=== PATIENT | female | born 1950 | race Caucasian/White ===

== ENCOUNTER 2022-02-04 15:19 | Emergency (ER) | payer OTHER, SELFPAY ==
[2022-02-04] VITALS (7 sets, daily range): BP systolic 104–129; BP diastolic 67–82; PULSE 99–101; RESP 14–18; TEMP 36.8–37; O2SAT 96–99; BMI 19.9
--- NOTE | 2022-02-04 15:56 | ED_ITS ---
HPI - Abdominal Pain General: Chief Complaint: Abdominal Pain Stated Complaint: severe abdominal pain/nausea/fever Time Seen by Provider: 02/04/22 15:56 History of Present Illness: Ms. Murguia is a 71-year-old lady without significant medical history who presents to the emergency department due to right lower quadrant abdominal pain. Onset of symptoms was this morning. There is no known specific inciting event. She endorses right lower quadrant pain which is moderate to severe in intensity worse with movement. She has associated nausea and chills with nausea however has not vomited. Denies urinary symptoms or changes in bowel movements. She describes pain as twisting. Overall course of symptoms has worsened. No other specific changes in health, exacerbating, or alleviating factors identified. Onset (ago): hour(s) Pain Consistency: constant Location: RLQ Quality: other Exacerbating factors: movement Relieving factors: nothing Review of Systems General: Reports: 10 or more systems reviewed and unremarkable except in HPI and below PFSH ED PFSH: Medical History (Updated 02/08/22 @ 00:33 by Rodriguez Fuller MD) Right ureteral calculus Surgical History History of cholecystectomy Family History Mother , at age 83 COPD (chronic obstructive pulmonary disease) Father , at age 50 Heart attack Social History Smoking and tobacco status: current every day smoker Alcohol intake: never Marital status: Current occupational status: employed and retired History of recent travel: No Physical Exam Const: COMMON NORMALS: alert GENERAL APPEARANCE: cooperative, well d eveloped and in distress (Uncomfortable due to pain) HENMT: COMMON NORMALS: normocephalic and atraumatic HEAD & SCALP: normocephalic and atraumatic Eye: COMMON NORMALS: conjunctivae normal CONJUNCTIVA: Yes conjunctivae normal SCLERA: sclerae normal Neck/C-Spine: COMMON NORMALS: supple GENERAL: Yes trachea midline Resp: COMMON NORMALS: clear to auscultation bilaterally EFFORT & INSPECTION: Yes able to speak in complete sentences AUSCULTATION: clear to auscultation bilaterally Cardio: COMMON NORMALS: regular rhythm RATE: tachycardic RHYTHM: regular rhythm GI: COMMON NORMALS: Soft to palpation PALPATION: Yes Soft to palpation, Yes Tenderness to palpation present (GI), Yes Guarding due to palpation present (GI), No Rigid due to palpation and Yes Rebound tenderness present Details: McBurney's point Extremity: GENERAL: Yes normal exam except as noted and No edema Neuro: COMMON NORMALS: moves all extremities SENSORIUM/ORIENTATION: Yes alert and No Orientation impaired Psych: COMMON NORMALS: mental status grossly normal and Normal thought process present THOUGHT PROCESS: Normal thought process present Course ED course: - Patient was seen and evaluated by me at bedside - Patient placed on cardiac monitors, IV access obtained - Initial evaluation notable for exam as above - Labs personally interpreted by me. EKG from 11/06/2004 interpreted by me shows sinus rhythm with no STEMI. -Analgesia given - Labs notable for no leukocytosis, normal hemoglobin. Metabolic panel without acute derangement, creatinine normal. Urinalysis without evidence of UTI, hematuria present. - Imaging notable for right UPJ obstructing stone with perinephric stranding and severe hydronephrosis. - Discussed with urology, plan for close outpatient follow-up given somewhat atypical obstructive properties of relatively small stone assuming patient's pain controllable - Upon serial reexamination after treatment the patient was improved with control of pain - Based on patient history, evaluation, and testing as interpreted the most likely cause of the patient's condition is obstructing right nephrolithiasis - The results of ED evaluation were discussed with the patient including prescriptions and/or symptomatic cares (if applicable) including appropriate and responsible use, followup plan, and return precautions. The patient verbalized understanding and felt safe for discharge. - Patient discharged in satisfactory condition. Note: Click bubbles or prepopulated dhaliwal in note writing are used for assistance with data collection and billing and are inherently more limited than narrative and other text portions of this note. Please use narrative for additional clinical history and defer to narrative/free test for any case of contradictory information. If information appears in only free text or click bubble it should be considered present or absent as reported. Please contact note creative writer for clarifications of clinical information or contradictory information. MDM is a brief summary, contradictory or erroneous seeming information should be clarified and full note should be reviewed. Vital Signs: Vital signs: Vital Signs Temperature 98.2 F 02/04/22 20:17 Pulse Rate 99 02/04/22 20:17 Respiratory Rate 14 02/04/22 20:17 Blood Pressure 104/82 02/04/22 20:17 Pulse Oximetry 96 02/04/22 20:17 MDM - Abdominal Pain Medical Decision Making 71-year-old lady without significant past medical history presenting with right lower quadrant pain. Patient found to have relatively small though obstructing UPJ stone. Pain controlled. No evidence of UTI. Satisfactory outpatient management with close follow-up with urology. Medical Records I reviewed the patient's medical records. Lab Data I reviewed the patient's lab results. : 02/04/22 16:55 02/04/22 17:23 Labs/Radiology: Radiology Impressions Abdomen/Pelvis CT 02/04/22 16:17 IMPRESSION: 1. 2.6 mm stone at the right ureteropelvic junction with severe right hydronephrosis and extensive right perinephric inflammation. 2. Incidental note of a bicornuate uterus. 3. Incidental/nonacute findings are listed in the report. Laboratory Results WBC 9.6 10^3/uL (4.0-10.0) 02/04/22 16:55 RBC 4.44 10^6/uL (4.1-5.3) 02/04/22 16:55 Hgb 13.3 g/dL (11.5-15.3) 02/04/22 16:55 Hct 40.5 % (37.0-47.0) 02/04/22 16:55 MCV 91.2 fl (81-99) 02/04/22 16:55 MCH 30.0 pg (28.0-34.0) 02/04/22 16:55 MCHC 32.8 g/dL (30.0-36.0) 02/04/22 16:55 RDW 12.7 % (12.1-15.1) 02/04/22 16:55 Plt Count 192 10^3/cmm (130-400) 02/04/22 16:55 MPV 11.7 fL (7.4-10.4) H 02/04/22 16:55 Neut % (Auto) 90.9 % 02/04/22 16:55 Lymph % (Auto) 6.8 % 02/04/22 16:55 Green % (Auto) 1.6 % 02/04/22 16:55 Eos % (Auto) 0.1 % 02/04/22 16:55 Baso % (Auto) 0.4 % 02/04/22 16:55 Neut # (Auto) 8.75 10^3/uL (1.8-7.7) H 02/04/22 16:55 Lymph # (Auto) 0.7 10^3/uL (0.8-4.8) L 02/04/22 16:55 Green # (Auto) 0.2 10^3/uL (0.2-0.9) 02/04/22 16:55 Eos # (Auto) 0.0 10^3/uL (0.0-0.8) 02/04/22 16:55 Baso # (Auto) 0.0 10^3/uL (0.0-0.1) 02/04/22 16:55 Nucleated RBC % (auto) 0 % 02/04/22 16:55 Nucleated RBCs # 0.0 /100WBC 02/04/22 16:55 Sodium 140 mmol/L (136-145) 02/04/22 17:23 Potassium 4.2 mmol/L (3.5-5.1) 02/04/22 17:23 Chloride 107 mmol/L (98-107) 02/04/22 17:23 Carbon Dioxide 23 mmol/L (22-29) 02/04/22 17:23 Anion Gap 14.2 (5-19) 02/04/22 17:23 BUN 12 mg/dL (8-23) 02/04/22 17:23 Creatinine 0.8 mg/dL (0.5-0.9) 02/04/22 17:23 GFR Calculation 70.9 mL/min (90-130) L 02/04/22 17:23 Glucose 114 mg/dL (65-115) 02/04/22 17:23 Calculated Osmolality 291 mOsm/kg (285-295) 02/04/22 17:23 Lactate 0.7 mmol/L (0.5-2.2) 02/04/22 16:55 Calcium 9.5 mg/dL (8.5-10.5) 02/04/22 17:23 Total Bilirubin 0.3 mg/dL (0.15-1.2) 02/04/22 17:23 AST 27 U/L (0-32) 02/04/22 17:23 ALT 21 U/L (0-33) 02/04/22 17:23 Alkaline Phosphatase 80 IU/L (35-105) 02/04/22 17: Total Protein 7.1 g/dL (6.6-8.7) 02/04/22 17: Albumin 4.4 g/dL (3.5-5.2) 02/04/22 17: Globulin 2.7 g/dL (1.3-4.6) 02/04/22 17: Lipase 26 U/L (13-60) 02/04/22 17:23 Urine Color Yellow (Yellow) 02/04/22 17:25 Urine Appearance Clear (CLEAR) 02/04/22 17:25 Urine pH 6 (5-7) 02/04/22 17:25 Ur Specific [place] 1.020 (1.005-1.030) 02/04/22 17:25 Urine Protein Neg (Negative) 02/04/22 17:25 Urine Glucose (UA) Norm (Normal) 02/04/22 17:25 Urine Ketones 2+ (Negative) H 02/04/22 17:25 Urine Blood 2+ (Negative) H 02/04/22 17:25 Urine Nitrate Negative (Negative) 02/04/22 17:25 Urine Bilirubin Neg (Negative) 02/04/22 17:25 Urine Urobilinogen Norm mg/dL (Negative) 02/04/22 17:25 Ur Leukocyte Esterase Negative (Negative) 02/04/22 17:25 Urine RBC 25-40 /hpf (0-2) H 02/04/22 17:25 Urine WBC 0-4 /hpf (0-5) H 02/04/22 17:25 Ur Squamous Epith Cells 0-4 /hpf (0-5) H 02/04/22 17:25 Amorphous Sediment Not Reportable 02/04/22 17:25 Urine Bacteria 1+ /hpf (NONE) H 02/04/22 17:25 Discharge Plan Discharge Patient Disposition: Home Clinical Impression: Obstruction of ureteropelvic junction (UPJ) due to stone, Hydronephrosis Condition: Stable Prescriptions: New oxycodone 5 mg tablet 5 mg PO Q4H PRN (Reason: pain) Qty: 20 0RF Flomax 0.4 mg capsule 0.4 mg PO DAILY Qty: 10 0RF ondansetron 4 mg tablet,disintegrating 4 mg PO Q8H PRN (Reason: nausea and vomiting) Qty: 15 0RF Discharge Orders: Discharge ED (Routine); Ordered 02/04/22 Ordered By: Rodriguez Fuller Referrals: Harley Colindres DO [Emergency Department] - Discharge Diet: Usual diet Discharge Activity: Resume usual activity Patient Instructions: Kidney Stones (ED), Opioid Safety Activity Restrictions/Additional Instructions: Thank you for visiting the emergency department. You were seen and evaluated for abdominal pain. You are found to have a kidney stone which likely explains your symptoms. You do have evidence of obstruction and inflammation around the kidney though no evidence of infection is seen. The kidney stone is at the junction of the kidney and ureter. I did discuss your case with Dr. Catalan, he is follow-up with him. Please call his clinic in the morning for potential follow-up tomorrow. I recommend repeat laboratory studies if not obtained sooner within 5 to 7 days to ensure kidney function is still adequate. Please return to the emergency department for uncontrolled pain, fevers, inability to tolerate oral intake, or anything else that you are concerned about and feel needs emergency department evaluation. Coding Level of Care Code ED Pediatric Radiologist for Mel Zimmerman Exam Comprehensive
--- NOTE | 2022-02-04 16:17 | CTR_ITS ---
PROCEDURE INFORMATION: Exam: CT Abdomen And Pelvis With Contrast Exam date and time: 02/04/2022 6:24 PM Age: 71 years old Clinical indication: Abdominal pain; Localized; Right lower quadrant (rlq); Prior surgery; Surgery date: 6+ months; Surgery type: Choley hernia; Additional info: Rlq pain 1 day, +rebound, ? appy TECHNIQUE: Imaging protocol: Computed tomography of the abdomen and pelvis with contrast. Sagittal and coronal reformatted images were created and reviewed. Radiation optimization: All CT scans at this facility use at least one of these dose optimization techniques: automated exposure control; mA and/or kV adjustment per patient size (includes targeted exams where dose is matched to clinical indication); or iterative reconstruction. Contrast material: OMNI 300; Contrast volume: 95 ml; Contrast route: INTRAVENOUS (IV); COMPARISON: No relevant prior studies available. RADIATION DOSE METRICS: Total DLP (mGy-cm): 825.04 FINDINGS: Lungs: Visualized lungs are clear. Pleural spaces: No pleural effusion. Heart: Visualized portions of the heart are mildly enlarged. Liver: The liver is unremarkable. Gallbladder and bile ducts: Patient has had a previous cholecystectomy. Dilatation of the biliary ducts, not unexpected in a patient who has had a prior cholecystectomy. Pancreas: The pancreas is unremarkable. No pancreatic ductal dilatation. Spleen: The spleen is unremarkable. Adrenal glands: The right and left adrenal glands are unremarkable. Kidneys and ureters: 2.6 mm stone at the right ureteropelvic junction with severe right hydronephrosis and extensive right perinephric inflammation. The left kidney is unremarkable. The left ureter is unremarkable. Stomach and bowel: No obstruction. No mucosal thickening. Appendix: The appendix is visualized and is unremarkable. No findings to suggest acute appendicitis. Intraperitoneal space: No free intraperitoneal air. No ascites. No loculated fluid collections to suggest an abscess. Vasculature: Mild atherosclerotic changes in the visualized arteries. No evidence for aortic aneurysm or aortic dissection. Hepatic veins, portal veins, splenic vein, and SMV are patent. Lymph nodes: No lymphadenopathy. Urinary bladder: The bladder is incompletely filled, which can limit evaluation. No focal abnormality in the bladder however. Reproductive: Incidental note of a bicornuate uterus. The right and left ovaries are unremarkable. Bones/joints: Degenerative changes in the spine and hips. Bones are diffusely osteopenic. Soft tissues: No acute abnormality in the extra-abdominal soft tissues. CT/CT abdomen pelvis w con* [id number] IMPRESSION: 1. 2.6 mm stone at the right ureteropelvic junction with severe right hydronephrosis and extensive right perinephric inflammation. 2. Incidental note of a bicornuate uterus. 3. Incidental/nonacute findings are listed in the report.
--- NOTE | 2022-02-04 16:18 | ECG_ITS ---
[facility] Test Date: 2022-02-04 Pat Name: Stephanie Murguia Department: Room: Gender: Female Renal Nurse: : 1950 Requested By: Rodriguez Fuller Order Number: [id number] Hoff MD: Wilber Sarabia M.D. Measurements Intervals [place] Rate: 93 P: 71 NE: 183 QRS: 69 QRSD: 89 T: 62 QT: 373 QTc: 466 Interpretive Statements SINUS RHYTHM No previous ECG available for comparison Electronically Signed On 02-05-2022 16:05:14 CDT by Wilber Sarabia M.D. [email or web address]
[2022-02-04 17:07] LABS: Basophils % 0.4 %; Eosinophils % 0.1 %; Hematocrit 40.5 % (37.0-47.0); Hemoglobin 13.3 g/dL (11.5-15.3); Lymphocytes # 0.7 10^3/uL (0.8-4.8); Lymphocytes % 6.8 %; Mean Corpuscular HGB Conc 32.8 g/dL (30.0-36.0); Mean Corpuscular Volume 91.2 fl (81-99); Mean Platelet Volume 11.7 fL (7.4-10.4); Monocytes # 0.2 10^3/uL (0.2-0.9); Monocytes % 1.6 %; Neutrophils # 8.75 10^3/uL (1.8-7.7); Neutrophils % 90.9 %; Nucleated Red Blood Cells % 0 %; Platelet Count 192 10^3/cmm (130-400); Red Blood Count 4.44 10^6/uL (4.1-5.3); Red Cell Distribution Width 12.7 % (12.1-15.1); White Blood Count 9.6 10^3/uL (4.0-10.0)
[2022-02-04] MEDS: fentaNYL 50 mcg/mL INJ 2mL 25 MCG IVP (17:08)
[2022-02-04] MEDS: ondansetron 2 mg/ML SDV 2 mL 4 MG IVP (17:09)
[2022-02-04] MEDS: lactated ringers 1,000 ML 999 ML IV (17:09)
[2022-02-04 17:30] LABS: Lactate (Lactic Acid level) 0.7 mmol/L (0.5-2.2)
[2022-02-04 18:00] LABS: Alanine Aminotransferase 21 U/L (0-33); Albumin Level 4.4 g/dL (3.5-5.2); Alkaline Phosphatase 80 IU/L (35-105); Anion Gap 14.2 (5-19); Aspartate Amino Transferase 27 U/L (0-32); Blood Urea Nitrogen 12 mg/dL (8-23); Calcium 9.5 mg/dL (8.5-10.5); Carbon Dioxide 23 mmol/L (22-29); Chloride 107 mmol/L (98-107); Globulin 2.7 g/dL (1.3-4.6); Glomerular Filtration Rate 70.9 mL/min (90-130); Glucose 114 mg/dL (65-115); Lipase 26 U/L (13-60); Osmolality Calculated 291 mOsm/kg (285-295); Potassium 4.2 mmol/L (3.5-5.1); Sodium 140 mmol/L (136-145); Total Bilirubin 0.3 mg/dL (0.15-1.2); Total Protein 7.1 g/dL (6.6-8.7)
[2022-02-04 18:03] LABS: Add Urine Microscopic? YES; Bilirubin Urine Neg (Negative); Blood Urine 2+ (Negative); Glucose Urine UA Norm (Normal); Ketones Urine 2+ (Negative); Leukocyte Esterase Urine Negative (Negative); Nitrate Urine Negative (Negative); Protein Urine Neg (Negative); Urine Appearance Clear (CLEAR); Urine Color Yellow (Yellow); Urobilinogen Urine Norm (Negative); pH Urine 6 (5-7)
[2022-02-04 18:04] LABS: Add Urine Culture? Yes; Bacteria Urine 1+ /hpf; RBC Urine 25-40 /hpf (0-2); Squamous Epithelial Cell Urine 0-4 /hpf (0-5); WBC Urine 0-4 /hpf (0-5)
[2022-02-04] MEDS: fentaNYL 50 mcg/mL INJ 2mL IVP (18:12)
[2022-02-04] MEDS: ketorolac 30 mg/mL INJ 15 MG IVP (19:24)
[2022-02-04] MEDS: tamsulosin 0.4 mg Capsule PO (19:24)
[2022-02-04] MEDS: oxyCODONE 5 mg IR Tab/Cap 10 MG PO (20:10)
--- NOTE | 2022-02-04 20:14 | PC.NURSE ---
Patient was released and no pharmacies were open. Dr. Fuller give the patient 2 oxycodone 5mg to take home for the night. The patient was educated on the medication and told to take one 5mg oxycodone q4hrs for the pain per Dr. ward. Patient verbalized understanding.
== END 2022-02-04 20:15 | disposition home or self-care (01) ==
PROVIDERS: Emergency Provider Emergency Medicine
DX: N13.0 Hydronephrosis with ureteropelvic junction obstruction (principal); F17.200 Nicotine dependence, unspecified, uncomplicated
CPT/HCPCS: 74177; 80053; 81001; 83605; 83690; 85025; 87040; 87086; 93005; 96361; 96374; 96375; 96376; 99284; J1885; J2405; J3010; Q9967

== ENCOUNTER 2022-02-05 11:22 | Outpatient (CLI) | payer OTHER, SELFPAY ==
--- NOTE | 2022-02-05 11:35 | XR_ITS ---
WS: [id number] XR KUB [id number] REASON FOR EXAM: HYDRONEPHROSIS FINDINGS: No free air or retroperitoneal air. Normal bowel gas pattern. Contrast from the previous day's CT scan the findings hydronephrosis in the right kidney. There appea rs to be a calculus just distal to the ureteropelvic junction of the right kidney congruent with the findings on the CT scan of the prior day. No other urinary tract calculi identified. Small amount of residual bladder contrast. No other significant findings. XR/XR KUB [id number] IMPRESSION: Right hydronephrosis secondary to proximal right ureteral calculus.
== END 2022-02-05 11:23 | disposition home or self-care (01) ==
PROVIDERS: PCP Urology; Visit Provider Urology
DX: N13.30 Unspecified hydronephrosis (principal); N20.1 Calculus of ureter
CPT/HCPCS: 74018; 81003

== ENCOUNTER 2022-02-12 07:10 | Outpatient (CLI) | payer OTHER, SELFPAY ==
--- NOTE | 2022-02-12 07:00 | XR_ITS ---
WS: [id number] KUB, AP view, 02/12/2022 Clinical Data: STONES Comparison: KUB, 02/05/2022. Findings: No abnormal intraabdominal masses or calcifications are seen. There is no dilatated small bowel or ev idence of obstruction. Fecal material obscures detail over both kidneys. The bladder is partly full. There are phleboliths o n left side of the true pelvis. There are clips in the right upper quadrant from a cholecystectomy. XR/XR KUB [id number] Impression: Negative KUB.
== END 2022-02-12 07:11 | disposition home or self-care (01) ==
LOC: RAD 07:12
PROVIDERS: PCP Urology; Visit Provider Urology
DX: N20.1 Calculus of ureter (principal)
CPT/HCPCS: 74018

== ENCOUNTER 2022-02-22 06:42 | Day surgery (SDC) | payer OTHER, SELFPAY ==
[2022-02-19 17:37] VITALS: BMI 19.9
[2022-02-22] VITALS (11 sets, daily range): BP systolic 102–129; BP diastolic 55–69; PULSE 79–106; RESP 14–20; TEMP 36.2–36.4; O2SAT 90–100
--- NOTE | 2022-02-22 06:50 | XR_ITS ---
WS: [id number] KUB, AP view, 02/22/2022 Clinical Data: Refractory right ureteral calculus, preop ESWL Comparison: KUB, 02/12/2022. Findings: No abnormal intraabdominal masses or calcifications are seen. There is no dilatated small bowel or ev idence of obstruction. There is colon gas and fecal material obscuring detail over both kidneys. There are right upper quadr ant clips from a cholecystectomy. XR/XR KUB [id number] Impression: Negative KUB.
--- NOTE | 2022-02-22 07:24 | ANES.PREANE2 ---
Pre-Anesthetic Assessment Height/Weight: Height 1.63 m Weight 52.617 kg Preop Diagnosis: Refractory right proximal ureteral stone Operation Date: 02/22/22 08:20 Proposed Procedures p Cystoscopy 21572/[id number] mod 26/n20.1(Not Applicable) - MD jose carlos Hernandes Ureteral Stent Placement(Right) - MD jose carlos Hernandes ESWL(Right) - MD jose carlos Hernandes Possible Laser Lithotripsy(Right) - Mahamed Catalan MD s Possible Retrograde Pyelogram(Right) - Mahamed Catalan MD Familial anesthetic complications: None Was Beta Dameon taken within 24 hours: N/A Was Clonidine taken within 24 hours: N/A Last intake: > 8 hrs Social Tobacco and No alcohol Exam alert, oriented x 3, clear to auscultation bilaterally and regular rate & rhythm Airway Mallampati: Class II Dentition: partials Pulmonary None reported CV/HEM None reported None reported kidney stones w/ past hydronephrosis Hepatic None reported GI None reported Metabolic None reported Musc/skel None reported Neuropsych None reported Anesthetic Plan ASA status: 2 Anesthesia: General Risk of > 500 ml blood loss (7ml/kg in children): No Medications/Allergies Home Medications Medication Instructions Recorded Confirmed Last Taken Type ondansetron 4 mg disintegrating 4 mg PO Q8H PRN #15 tab 02/04/22 02/22/22 02/20/22 Rx tablet oxycodone 5 mg tablet 5 mg PO Q4H PRN 4 Days #20 tab 02/17/22 02/22/22 02/20/22 Rx tamsulosin 0.4 mg capsule (Flomax) 0.4 mg PO DAILY #20 cap 02/17/22 02/22/22 02/21/22 Rx Allergies Allergy/AdvReac Type Severity Reaction Status Date / Time morphine Allergy Severe Unknown Verified 02/19/22 17:36 [facility] Anesthesia Medical History Right ureteral calculus Surgical History History of cholecystectomy Family History Mother , at age 83 COPD (chronic obstructive pulmonary disease) Father , at age 50 Heart attack Social History Smoking and tobacco status: current every day smoker Alcohol intake: never Marital status: Current occupational status: employed and retired History of recent travel: No Data Anesthesia Cardiac Studies: No Data to Display
[2022-02-22] MEDS: sodium chloride 0.9% 1,000 ML 30 ML IV (07:30)
[2022-02-22 08:10] LABS: Anion Gap 15.5 (5-19); Blood Urea Nitrogen 4 mg/dL (8-23); Calcium 8.2 mg/dL (8.5-10.5); Carbon Dioxide 21 mmol/L (22-29); Chloride 108 mmol/L (98-107); Glomerular Filtration Rate 98.8 mL/min (90-130); Glucose 87 mg/dL (65-115); Osmolality Calculated 288 mOsm/kg (285-295); Potassium 3.5 mmol/L (3.5-5.1); Sodium 141 mmol/L (136-145)
--- NOTE | 2022-02-22 08:15 | P.HPUD_ITS ---
Surgery/Procedure H&P Update DATE OF PROCEDURE: February 22, 2022 DATE H&P PERFORMED: 02/12/22 H&P UPDATE INFORMATION: I have reviewed H&P completed within last 30 days, I have examined patient prior to procedure, No changes to prior documentation and [place] [facility] [place] indicated CHANGES TO PREVIOUS DOCUMENTATION: KUB this morning shows a stone in the same position. Reviewed stent versus no stent again. Proceed as planned PREOP DIAGNOSIS: Refractory right proximal ureteral stone PLANNED PROCEDURE: Operation Date: 02/22/22 08:20 Proposed Procedures p Cystoscopy [id number] mod 26/n20.1(Not Applicable) - Mahamed Catalan MD s Ureteral Stent Placement(Right) - MD jose carlos Hernandes ESWL(Right) - MD jose carlos Hernandes Possible Laser Lithotripsy(Right) - MD jose carlos Hernandes Possible Retrograde Pyelogram(Right) - Mahamed Catalan MD
--- NOTE | 2022-02-22 08:17 | PM.OP ---
Operative Report Date of procedure: February 22, 2022 Pre-op diagnosis: Refractory right proximal ureteral stone Post-op diagnosis: Refractory right proximal ureteral stone Procedure done: 1. Extracorporeal shockwave lithotripsy right proximal ureteral stone 2. Cystoscopy, RIGHT: Retrograde ureteropyelogram, ureteral stent placement (6 [place] by 24 cm double-pigtail without string) Implants: Right ureteral stent Specimens removed/disposition: None Pathology: None Surgeon: Hossein Anesthesia: General Urine output: Not measured Complications: None Findings: Stone easily identified. 2500 shocks administered as described below. 6 [place] by 24 cm double-pigtail stent was left indwelling at the completion of the procedure. Brief History: Mrs. 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 No evidence of infection. Her initial decision was to try conservative management but unfortunately the stone did not progress and she was intermittently severely symptomatic. She elected to proceed with treatment and after review of all the options she elected ESWL with or without stent pending response. Procedure: After routine preoperative evaluation examination and obtaining of informed consent she was taken to the operating suite on 02/22/2022 where general anesthesia was administered without difficulty after appropriate timeout was performed, SCDs confirmed to be functioning, preoperative antibiotics administered, beta-monica protocol confirmed. Position on the Dornier unit such that the stone was located at the focal point utilizing biplanar fluoroscopy. The shock head was positioned anteriorly initially Good focus was obtained. Shockwave therapy initiated intensity of 1 and advanced up to 6-7. There was a 3-minute pause after about 300 shocks There appear to be significant change at the thousand shocks. Another 1000 shocks were administered with further change. She was then repositioned in dorsolithotomy position paying careful attention to avoiding pressure points. 21 [place] cystoscope with 30 degree lens was introduced into the urethra meatus and advanced into the bladder to videoscopy. An 8 [place] cone-tip catheter was intubated into the right ureteral orifice for right retrograde ureteropyelogram which demonstrated: Normal distal ureter. There was still some persistent filling defect at the site of the stone which was confirmed to be the targeted area during the shockwave treatment. That area was then focused upon. The ureter proximal to that point was still quite dilated as expected. A flexible tip guidewire was advanced up the ureter with observation of this area as the wire passed into the upper pole calyx. No clear stone movement or stone identification beyond what has been described was noted. A 6 [place] by 24 cm double-pigtail stent was advanced over the guidewire through the cystoscope into appropriate position as confirmed via fluoroscopy and cystoscopy. And additional 500 shocks were administered to the area of the filling defect seen on the retrograde pyelogram and the procedure was completed. She tolerated the procedure well without complications and was awakened in the operating room and returned to the recovery room in stable condition. Results: 1. Total shocks: 2500 2. Intensity range: 1-7 3. Change noted: Excellent 4. 6 [place] by 24 cm double-pigtail stent without string left indwelling. PLANS: 1. Anticipate discharge from outpatient surgery 2. Follow-up next week for cystoscopy stent removal
[2022-02-22] MEDS: levofloxacin-dextrose 5 % 500 MG/100 ML PREMIX 100 MG IV (08:20)
--- NOTE | 2022-02-22 09:21 | SUR.OPER ---
OMNIPAQUE 50ML ADDED TO STERILE FIELD. EXP 11/12/24. LOT [id number]
[2022-02-22] MEDS: ondansetron 2 mg/ML SDV 2 mL 4 MG IVP (10:33)
--- NOTE | 2022-02-22 14:43 | ANE.PACU2 ---
Inpatient post-anesthesia follow up: Airway intact: Yes Vital signs: Temperature 97.5 F Pulse Rate 83 Respiratory Rate 18 Blood Pressure 120/61 Pulse Oximetry 99 Oxygen Delivery Me thod Room Air Oxygen Flow Rate 2 Fraction of Inspir ed Oxygen Hydration adequate: Yes Nausea and vomiting: No Pain level: 2 Mental status: Baseline
== END 2022-02-22 10:54 | disposition home or self-care (01) ==
PROVIDERS: PCP Urology; Visit Provider Urology
PROC: 0TJB8ZZ Inspection of Bladder, Via Natural or Artificial Opening Endoscopic (ICD-10-PCS; CPT 52000; principal; 2022-02-22 08:10)
PROC: (CPT 50605; 2022-02-22 08:10)
PROC: (CPT 50590; 2022-02-22 08:10)
PROC: (CPT 74420; 2022-02-22 08:10)
DX: N20.1 Calculus of ureter (principal); F17.210 Nicotine dependence, cigarettes, uncomplicated
CPT/HCPCS: 50590; 52332; 36415; 74018; 80048; C2625; J0330; J1100; J1956; J2405; J2704; J2710; J3010; J3490; J7030

== ENCOUNTER 2022-03-02 14:30 | Outpatient (CLI) | payer OTHER, SELFPAY ==
--- NOTE | 2022-03-02 14:43 | XRR_ITS ---
PROCEDURE INFORMATION: Exam: XR Abdomen Exam date and time: 03/02/2022 2:45 PM Age: 71 years old Clinical indication: Condition or disease; Kidney or ureter condition; Calculus (stone) in ureter; Prior surgery; Surgery type: --gb, hernia, ureteral stent; Additional info: Right ureteral calculus, kub @ ozh on 03/02/22 @ 2:15. Appt to follow TECHNIQUE: Imaging protocol: XR of the abdomen. Views: Frontal supine view of the abdomen. 1 View. COMPARISON: CR XR KUB [id number] 02/22/2022 6:59 AM FINDINGS: Tubes, catheters and devices: Right ureteral stent seen. Gastrointestinal tract: Mild constipation. Intraperitoneal space: Right upper quadrant surgical clips. Vasculature: Several left pelvis probable calcified phleboliths. Bones/joints: Unremarkable. XR/XR KUB [id number] IMPRESSION: 1. Negative for urinary calculus seen. 2. Right ureteral stent seen. 3. Right upper quadrant surgical clips. 4. Mild constipation. 5. Several left pelvis probable calcified phleboliths.
== END 2022-03-02 14:31 | disposition home or self-care (01) ==
PROVIDERS: Visit Provider Urology
DX: N20.1 Calculus of ureter (principal)
CPT/HCPCS: 74018; 81003